=== PATIENT | male | born 1960 | race Caucasian/White ===

== ENCOUNTER 2018-04-25 14:20 | Outpatient (CLI) | payer BC, SELFPAY ==
[2018-04-25 14:40] LABS: Abs Immature Grans 0.03 k/cumm (0.0-0.09); Absolute Basophil Count 0.04 k/cumm (0.0-0.2); Absolute Eosinophil Count 0.05 k/cumm (0.0-0.7); Absolute Lymphocyte Count 1.14 k/cumm (1.2-3.4); Basophils % 0.4; Eosinophils % 0.5; HCT 40.8 % (40.0-50.0); HGB 13.3 g/dL (13.5-17.5); Immature Grans % 0.3; Lymphocytes % 10.9; Mean Corp. HGB Concentration 32.6 g/dL (32.0-36.0); Mean Corpuscular Volume 95.1 fL (80-95); Mean Platelet Volume 10.2 fL (8.0-11.0); Monocytes % 8.6; Neutrophils % 79.3; Platelet Count 466 x1000/uL (130-400); RBC 4.29 m/cumm (4.50-6.00); White Blood Cell Count 10.46 k/cumm (4.4-10.8)
[2018-04-25 16:08] LABS: ALT 20 U/L (12-78); AST 14 U/L (15-37); Albumin 2.9 g/dL (3.4-5.0); Alkaline Phosphatase 87 U/L (46-116); Anion Gap 8.6 mmol/L (3-11); BUN 14 mg/dL (7-18); Bilirubin, Total 0.2 mg/dL (0.2-1.0); CO2 29.4 mmol/L (21.0-32.0); CREATININE 0.94 mg/dL (0.70-1.30); Chloride 100 mmol/L (98-107); Glucose 99 mg/dL (70-100); Potassium 4.3 mmol/L (3.5-5.1); Sodium 138 mmol/L (136-145)
== END 2018-04-25 14:40 ==
PROVIDERS: PCP Emergency Medicine; Visit Provider Emergency Medicine
DX: R19.7 Diarrhea, unspecified (principal)
CPT/HCPCS: 36415; 80053; 85025

== ENCOUNTER 2018-04-26 09:51 | Outpatient (REF) | payer BC, SELFPAY ==
[2018-04-28 11:47] LABS: Campylobacter PCR SEE COMMENTS; Salmonella PCR SEE COMMENTS; Shiga Toxin PCR SEE COMMENTS; Shigella/Enteroinvasive Ecoli SEE COMMENTS
== END 2018-04-26 10:11 ==
LOC: LBN 09:51
PROVIDERS: PCP Emergency Medicine; Visit Provider Emergency Medicine
DX: R19.7 Diarrhea, unspecified (principal)
CPT/HCPCS: 87329; 87505; 87324

== ENCOUNTER 2020-10-11 11:18 | Outpatient (REF) | payer BC, SELFPAY ==
[2020-10-11 13:59] LABS: Calculated LDL 155 mg/dL (<100); Cholesterol 231 mg/dL (<200); HDL Cholesterol 48 mg/dL (40-60); Triglyceride 143 mg/dL (<150)
[2020-10-11 22:13] LABS: PSA, Screening 0.3 ng/mL (0.0-4.5)
== END 2020-10-11 11:19 | disposition home or self-care (01) ==
LOC: LBN 11:18
PROVIDERS: PCP Emergency Medicine; Visit Provider Emergency Medicine
DX: E78.5 Hyperlipidemia, unspecified (principal); Z12.5 Encounter for screening for malignant neoplasm of prostate
CPT/HCPCS: 80061; 84153

== ENCOUNTER 2021-02-13 02:49 | Outpatient (CLI) | payer BC, SELFPAY ==
[2021-02-13 11:37] LABS: Source Nasal/Nares
[2021-02-13 16:28] LABS: COVID-19 PCR Negative (Negative)
== END 2021-02-13 02:50 | disposition home or self-care (01) ==
LOC: LBO 02:50
PROVIDERS: PCP Emergency Medicine; Visit Provider Surgery
DX: Z20.822 Contact with and (suspected) exposure to COVID-19 (principal); Z01.818 Encounter for other preprocedural examination
CPT/HCPCS: 87635

== ENCOUNTER 2021-02-15 10:26 | Day surgery (SDC) | payer BC, SELFPAY ==
--- NOTE | 2021-02-15 06:56 | W.COLOREPORT ---
Colonoscopy Report Date of procedure: 02/15/21 Pre-op diagnosis general: Colon Cancer Screening Post-op diagnosis procedure note: same (and diverticulosis) Procedure: Colonoscopy Surgeon: Carlie House Anesthesia Type: General:No Airway (Lilo Schwarz CRNA) Estimated blood loss (mL): 0 Pathology: none sent Complications: None Disposition: same day Indications: Mr. Ayala is a pleasant 60-year-old gentleman who is here to discuss another colonoscopy. His last colonoscopy was in 2010 and was normal. He denies any changes in bowel habits, melena or hematochezia. We reviewed the procedure in detail as well as the risks and complications. He does not need to stop any of his medications. I did recommend that he take his Pepcid the morning of with a sip of water. Risks, benefits and complications have been reviewed. Complications include but are not limited to bleeding, pain, perforation, missed small lesion/polyp, sore throat, aspiration and adverse reaction to the medications. Questions were entertained and answered to their satisfaction and they wished to proceed. No guarantees were given or implied. Colonoscopy under sedation Prep: Miralax/Dulcolax Procedure Start Time: 13:12 Procedure End Time: 13:35 Retraction Time: 13 minutes Findings: Mild descending and sigmoid diverticulosis Procedure Description: After informed consent was obtained the patient was taken to the procedure room and placed in a left decubitous position. Monitors were applied and a time out was done. The patients name, date of , procedure, allergies to medications and metal in their body was reviewed. The patient was then sedated. Once sedated and comfortable a rectal exam was done. External exam was normal. Internal exam revealed a normal sphincter tone and no palpable masses. The prostate felt smooth. The scope was then introduced and retro-flexed. No internal hemorrhoids, polyps or masses were identified on retro-flexion. The scope was then advanced to the cecum without difficulty. The ileocecal vlave and appendiceal orifice were identified. The prep was adequate. The scope was then slowly retracted over 12 minutes back into the rectum. There were no polyps. There was mild descending and sigmoid diverticulosis noted. The scope was removed and the patient was woken up and taken back to Same day surgery in stable condition. The patient tolerated the procedure well and there were no immediate complications. Follow up: The patient should follow up in 10 years unless they develop changes in bowel habits or other new gastrointestinal complaints.
--- NOTE | 2021-02-15 06:57 | W.PM.DSUDISC ---
Discharge Plan Disposition Patient Disposition: HOME Condition: Good Discharge Details Reason For Visit: colonoscopy Attending Provider: Carlie House Primary Care Provider: Kael Barajas Home Meds and New Rx's Prescriptions: Continued triamcinolone acetonide 0.1 % ointment 1 applic TP DAILY Qty: 80 RF: 0 famotidine [Pepcid] 20 mg tablet 20 mg PO DAILY RF: 0 Discontinued bisacodyl [Dulcolax (bisacodyl)] 5 mg tablet,delayed release (DR/EC) 5 mg PO ONCE Qty: 4 RF: 0 polyethylene glycol 3350 17 gram powder in packet 255 g PO DAILY Qty: 15 RF: 0 Discharge Instructions Instructions: Diverticulosis (DC) Additional Instructions: Findings: Diverticulosis Follow up: 10 years Please call if you develop: fevers >101.5 Nausea or Vomiting Abdominal pain that is not transient Rectal bleeding that is more then a tbsp A hard abdomen and inability to pass gas DAY SURGERY UNIT POST ENDOSCOPY INSTRUCTIONS Instructions for everyone who is given Anesthesia: For your safety, please do the following for the next 24 Hours: a. Do not drive or operate dangerous equipment b. Do not drink alcohol beverages or use any recreational drugs for the first 24 hours or while taking pain medications. The medications in your body may have a reaction that can be dangerous. c. Do not make any important decisions or sign any important papers 1. Generally there are no restrictions on your activity after a day or so has gone by, but you may feel a bit fatigued for a few days. 2. After you arrive home you may have a light meal and return to a normal diet as you can tolerate it without feeling sick to your stomach. 3. After surgery, you may feel pain or discomfort. This should be only transient, but if it persists please contact your doctor. 4. If there are any questions regarding the findings of your procedure, please feel free to contact your doctor. 6. If you are unable to contact your doctor with a problem, contact the hospital at [phone]. 7. Continue all your regular medications unless directed otherwise. I understand the above instructions and have no questions. Signature of Patient or Responsible Adult Escort Date/Time Name of Responsible Adult Escort Signature of Nurse Date/Time Activity:: Activity as Tolerated Diet:: High fiber diet Discharge Orders Discharge Orders: Discharge Order (Routine); Ordered 02/15/21 Ordered By: Carlie House
[2021-02-15 10:40] VITALS: BP 161/106; PULSE 98; RESP 18; TEMP 36.2; O2SAT 97
[2021-02-15] MEDS: Lactated Ringers 1,000 ML 80 ML IV (11:03)
--- NOTE | 2021-02-15 11:21 | W.ANESPRE ---
General Info Date of Service Date Performed: 02/15/21 Height: 5 ft 11 in Weight: 85.3 kg Body Mass Index (BMI): 26.2 Surgical Procedure: Operation Date: 02/15/21 13:35 Proposed Procedures Side Surgeon p Colonoscopy Carlie House MD Meds Allergies and Home Medications Allergies Allergy/AdvReac Type Severity Reaction Status Date / Time No Known Drug Allergies Allergy Verified 02/15/21 10:49 Home Medication Medication Instructions Recorded triamcinolone acetonide 0.1 % 1 applic TP DAILY #80 gm 01/07/19 topical ointment bisacodyl 5 mg tablet,delayed 5 mg PO ONCE #4 tab 01/24/21 release famotidine 20 mg tablet 20 mg PO DAILY 01/24/21 polyethylene glycol 3350 17 gram 255 g PO DAILY #15 ea 01/24/21 oral powder packet Current Visit Medications: Current Medications Generic Name Dose Route Start Last Admin Trade Name Freq PRN Reason Stop Dose Admin Hyoscyamine Sulfate 0.125 mg 02/15/21 06:57 Hyoscyamine 0.125 Mg Sl/Oral/Chew SL DIRECTED PRN Ringer's Solution 1,000 mls @ 80 mls/hr 02/15/21 06:00 02/15/21 11:03 IV 03/16/21 23:59 80 mls/hr INFUSION BERNARDINO Administration IV Miscellaneous Supplies 1 each 02/15/21 06:00 Iv Access IV 03/16/21 23:59 DIRECTED BERNARDINO Ondansetron HCl 4 mg 02/15/21 06:57 Ondansetron 4 Mg/2 Ml Vial IVP Q4H PRN PRN Nausea / Vomiting Sodium Chloride 0 ml 02/15/21 06:00 Normal Saline Flush 10 Ml Syr IV 03/16/21 23:59 PRN PRN Sodium Chloride 0 ml 02/15/21 06:00 Normal Saline 10 Ml Vial IJ 03/16/21 23:59 DIRECTED PRN Sterile Water 0 ml 02/15/21 06:00 Water,Injection,Sterile 10 Ml Vial IJ 03/16/21 23:59 DIRECTED PRN PFSH Active Problems Active Problems: Problem Status Onset Code Abnormal laboratory test R89.9 History of esophagogastroduodenoscopy Z98.890 Abnormal laboratory test R89.9 Encounter for colorectal cancer screening Z12.11, Z12.12 Anxiety F41.9 Diverticulosis K57.90 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 Essential hypertension 07/27/13 I10 Gastroesophageal reflux disease with esophagitis K21.0 Heart murmur R01.1 Hyperlipidemia E78.5 Panic attack F41.0 Shoulder pain M25.519 Tinnitus H93.19 Degenerative joint disease, ankle, 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 Medical History Medical History Anxiety Degenerative joint disease, ankle, left (04/11/16) Diverticulosis Drusen body LEFT EYE Essential hypertension (07/27/13) Gastroesophageal reflux disease with esophagitis Heart murmur SYSTOLIC MURMUR-f/u with PCP Hyperlipidemia Panic attack Shoulder pain Tinnitus 6/07 RIGHT SIDED Surgical History Surgical History Colonoscopy - [facility] (~11/2010) EGD - [facility] 2000; GERD Tobacco Smoking/Tobacco Use Status: Never Passive smoking exposure: No Alcohol Alcohol Intake: current Alcohol intake frequency: a few times a month Alcohol type: beer Substance Use Substance use: Never Substance use type: does not use Details: states has not had any alcohol for about a month Vital Signs and Lab Results Vital Signs Most Recent Vital Signs in EMR: Most Recent Vital Signs Temp Pulse Resp BP Pulse Ox 36.2 C L 98 H 18 161/106 H 97 02/15/21 10:40 02/15/21 10:40 02/15/21 10:40 02/15/21 10:40 02/15/21 10:40 Lab Results Blood Type / Crossmatch: No Data to Display Complete Blood Count: No Data to Display Complete Metabolic Panel: No Data to Display Liver Function Panel: No Data to Display Coagulation Panel: No Data to Display Cardiac Panel: No Data to Display Arterial Blood Gas: No Data to Display Venous Blood Gas: No Data to Display Pancreas Panel: No Data to Display Thyroid Panel: No Data to Display Infectious Disease: Coronavirus (COVID-19)(PCR) Negative (Negative) 02/13/21 08:40 02/13/21 Coronavirus 2019 Source Nasal/Nares 02/13/21 08:40 02/13/21 Blood Cultures: No Data to Display Toxicology Panel: No Data to Display Anesthesia Assessment and Plan Anesthesia History Personal History: No History of Anesthesia Complications Family History: No Family History of Anesthesia Complications Exercise Tolerance Exercise Tolerance: Metabolic Equivalents>4 Pertinent Negatives Pertinent Negatives: No Symptoms of GERD Cardiac & Pulmonary Exam Cardiac Exam: Normal S1/S2 Heart Sounds Pulmonary Exam: Clear Bilateral Breath Sounds Airway Exam Known Difficult Airway: No Mallampati Class: 1 Mouth Opening: Normal (> 3cm) Thyromental Distance: Greater than 3 cm Neck Range of Motion: Full ROM Neck Circumference: Normal Teeth Condition: Normal Dentition ASA Classification ASA Score: ASA 2 Emergency Case?: No NPO Status NPO Status: NPO Clears >2 hours, Solids >8 hours Anesthesia Plan Resuscitation Status: Full Code Anesthesia Technique: General Anesthesia Airway Planned: Natural Airway Monitors Used: Standard Monitors
[2021-02-15 11:25] VITALS: BMI 26.2
[2021-02-15 13:44] VITALS: BP 104/53; PULSE 70; RESP 18; TEMP 36.3; O2SAT 95
--- NOTE | 2021-02-15 13:49 | W.ANESPOSTOP ---
Postoperative Evaluation Date, Time and Location Date Performed: 02/15/21 Time Performed: 13:49 Patient Location: Day Surgery Unit Vital Signs Most Recent Imported Vital Signs: Most Recent Vital Signs Temp Pulse Resp BP Pulse Ox 36.3 C L 70 18 104/53 L 95 02/15/21 13:44 02/15/21 13:44 02/15/21 13:44 02/15/21 13:44 02/15/21 13:44 Pain Score Most Recent Pain Score: Most Recent Pain Score Pain Level 0 02/15/21 13:44 Assessment Mental Status: Awake (Alert & Oriented to Patient Baseline) Airway and Respiratory Function: Patent airway with normal (patient baseline) respiratory exam Cardiovascular Function: Hemodynamically Stable Hydration Status: Adequately Hydrated Nausea & Vomiting: No Nausea or Vomiting Pain: Pt. Denies Any Pain Peripheral Nerve Block: Patient did not receive a nerve block
[2021-02-15 14:22] VITALS: BP 126/74; PULSE 78; RESP 16; TEMP 36.2; O2SAT 98
== END 2021-02-15 14:43 | disposition home or self-care (01) ==
LOC: SUR 10:26
PROVIDERS: PCP Emergency Medicine; Visit Provider Surgery
PROC: 0DJD8ZZ Inspection of Lower Intestinal Tract, Via Natural or Artificial Opening Endoscopic (ICD-10-PCS; CPT 45378; principal; 2021-02-15 13:30)
DX: Z12.11 Encounter for screening for malignant neoplasm of colon (principal); K57.30 Diverticulosis of large intestine without perforation or abscess without bleeding
CPT/HCPCS: 45378; J2001; J2704

== ENCOUNTER 2022-02-12 03:25 | Outpatient (CLI) | payer BC, SELFPAY ==
[2022-02-12 12:30] LABS: BUN 18 mg/dL (7-18); CREATININE 0.9 mg/dL (0.70-1.30); Calculated LDL 127 mg/dL (<100); Chloride 105 mmol/L (98-107); Cholesterol 197 mg/dL (<200); Estimated GFR 97.17 (mL/min/1.73m2); Glucose 78 mg/dL (74-106); HDL Cholesterol 54 mg/dL (40-60); Potassium 3.7 mmol/L (3.5-5.1); Sodium 141 mmol/L (136-145); Triglyceride 81 mg/dL (<150)
== END 2022-02-12 03:26 | disposition home or self-care (01) ==
LOC: LOS 03:25
PROVIDERS: PCP Family Medicine; Visit Provider Family Medicine
DX: Z00.00 Encounter for general adult medical examination without abnormal findings (principal); I10 Essential (primary) hypertension; E78.5 Hyperlipidemia, unspecified
CPT/HCPCS: 36415; 80048; 80061

== ENCOUNTER 2024-02-03 03:14 | Outpatient (CLI) | payer BC, SELFPAY ==
[2024-02-03 12:58] LABS: Anion Gap 8.8 mmol/L (3-11); BUN 16 mg/dL (7-18); CO2 29.2 mmol/L (21.0-32.0); CREATININE 0.9 mg/dL (0.70-1.30); Chloride 105 mmol/L (98-107); Estimated GFR 95.97 (mL/min/1.73m2); Glucose 89 mg/dL (74-106); Magnesium 2.2 mg/dL (1.8-2.4); Potassium 3.7 mmol/L (3.5-5.1); Sodium 143 mmol/L (136-145)
== END 2024-02-03 03:15 | disposition home or self-care (01) ==
LOC: LOS 03:14
PROVIDERS: PCP Family Medicine; Visit Provider Family Medicine
DX: I10 Essential (primary) hypertension (principal)
CPT/HCPCS: 36415; 80048; 83735

== ENCOUNTER 2024-08-14 00:47 | Outpatient (CLI) | payer BC, SELFPAY ==
[2024-08-14 13:51] LABS: ALT 25 U/L (16-63); AST 29 U/L (15-37); Albumin 3.9 g/dL (3.4-5.0); Alkaline Phosphatase 66 U/L (46-116); Anion Gap 8.5 mmol/L (3-11); BUN 14 mg/dL (7-18); Bilirubin, Total 0.7 mg/dL (0.2-1.0); CO2 29.5 mmol/L (21.0-32.0); CREATININE 1.1 mg/dL (0.70-1.30); Calcium 9.1 mg/dL (8.5-10.1); Calculated LDL 162 mg/dL (<100); Chloride 104 mmol/L (98-107); Cholesterol 233 mg/dL (<200); Estimated GFR 75.43 (mL/min/1.73m2); Glucose 91 mg/dL (74-106); HDL Cholesterol 58 mg/dL (>or=40); Potassium 4.3 mmol/L (3.5-5.1); Sodium 142 mmol/L (136-145); Total Protein 7.4 g/dL (6.4-8.2); Triglyceride 66 mg/dL (<150)
== END 2024-08-14 00:48 | disposition home or self-care (01) ==
LOC: LOS 00:48
PROVIDERS: PCP Family Medicine; Visit Provider Family Medicine
DX: Z00.00 Encounter for general adult medical examination without abnormal findings (principal); I10 Essential (primary) hypertension; Z13.6 Encounter for screening for cardiovascular disorders
CPT/HCPCS: 36415; 80053; 80061

== ENCOUNTER 2024-08-31 03:02 | Outpatient (CLI) | payer BC, SELFPAY ==
[2024-09-02 11:28] LABS: Lipoprotein (a) 117 nmol/L (<75)
== END 2024-08-31 03:03 | disposition home or self-care (01) ==
LOC: LOS 03:02
PROVIDERS: PCP Family Medicine; Visit Provider Family Medicine
DX: E78.5 Hyperlipidemia, unspecified (principal)
CPT/HCPCS: 36415; 83695

== ENCOUNTER 2025-02-19 00:07 | Outpatient (CLI) | payer BC, SELFPAY ==
[2025-02-19 14:29] LABS: ALT 26 U/L (16-63); AST 24 U/L (15-37); Albumin 3.8 g/dL (3.4-5.0); Alkaline Phosphatase 59 U/L (46-116); Anion Gap 6.5 mmol/L (3-11); BUN 16 mg/dL (7-18); Bilirubin, Total 0.5 mg/dL (0.2-1.0); CO2 31.5 mmol/L (21.0-32.0); Calcium 9.2 mg/dL (8.5-10.1); Calculated LDL 105 mg/dL (<100); Chloride 102 mmol/L (98-107); Cholesterol 174 mg/dL (<200); Estimated GFR 95.37 (mL/min/1.73m2); Glucose 79 mg/dL (74-106); HDL Cholesterol 58 mg/dL (>or=40); Potassium 4.0 mmol/L (3.5-5.1); Sodium 140 mmol/L (136-145); Total Protein 7.6 g/dL (6.4-8.2); Triglyceride 59 mg/dL (<150)
[2025-02-22 09:43] LABS: PSA, Screening 0.4 ng/mL (<=4.5)
[2025-02-22 11:48] LABS: Hepatitis C Ab w Rflx HCV PCR Negative (Negative)
== END 2025-02-19 00:08 | disposition home or self-care (01) ==
LOC: LOS 00:07
PROVIDERS: PCP Family Medicine; Visit Provider Family Medicine
DX: Z11.59 Encounter for screening for other viral diseases (principal); E78.2 Mixed hyperlipidemia; Z00.00 Encounter for general adult medical examination without abnormal findings; I10 Essential (primary) hypertension; Z12.5 Encounter for screening for malignant neoplasm of prostate; Z13.6 Encounter for screening for cardiovascular disorders; Z91.89 Other specified personal risk factors, not elsewhere classified
CPT/HCPCS: 36415; 80053; 80061; 83695; 84153; 86803